=== PATIENT | male | born 1990 | race Caucasian/White ===

== ENCOUNTER 2017-04-18 17:27 | Emergency (ER) | payer OTHER ==
[~2017-04-18] VITALS: Ht 175.3 cm; Wt 102.1 kg
[~2017-04-18 17:27] MED LIST: ALLOPURINOL300 M1 PO; CYCLOBENZAPRINE5 M2 PO; DOXYCYCLINE HY100 M2 PO; FLEXERIL10 MG PO; INDOMETHACIN50 M1 PO; TESSALON PERLE100 M1 PO; ULTRAM50 M1 PO
--- NOTE | 2017-04-18 17:45 | ED GI/GU/ABDOMINAL COMPLAINT ---
History of Present Illness General Chief Complaint: General Adult Stated Complaint: SPLEEN INJURY Source: patient Exam Limitations: no limitations Vital Signs & Intake/Output Vital Signs & Intake/Output Vital Signs Date Time Temp Pulse Resp B/P B/P Pulse O2 O2 Flow FiO2 Mean Ox Delivery Rate 04/18 2054 97.2 97 18 135/80 95 Room Air Room Air 04/18 1847 97.0 103 20 142/80 96 Room Air 04/18 1733 97.3 105 18 150/97 94 Room Air ED Intake and Output 04/19 0000 04/18 1200 Intake Total Output Total Balance Patient 225 lb Weight Weight Reported by Patient Measurement Method Allergies Coded Allergies: clindamycin (ANAPHYLAXIS 04/18/17) Reconcile Medications Acetaminophen 500 MG TABLET 2 TAB PO PRN PAIN (Reported) Albuterol Sulfate (Proventil Hfa) 90 MCG HFA.AER.AD 2 PUF INH PRN ASTHMA ( Reported) Allopurinol 300 MG TABLET 1 TAB PO QPM GOUT (Reported) Fluticasone/Vilanterol (Breo Ellipta 200-25 Mcg INH) 200 MCG-25 MCG/DOSE BLST.W.DEV 1 PUFF INH QAM ASTHMA (Reported) Meloxicam 15 MG TABLET 1 TAB PO QAM PAIN/INFLAMMATION (Reported) Montelukast Sodium 10 MG TABLET 1 TAB PO DAILY ALLERGIES (Reported) Triage Note: PT STATES HE HAD A CT SCAN LAST WEEK AND STATES THEY TOLD HIM THAT HE HAD AN ENLARGED SPLEEN. PT STATES HE HAD A BLOW TO HIS CHEST AND STATES HE IS HAVING PAIN AND HIS DR. TOLD HIM TO GET TO THE ED. Triage Nurses Notes Reviewed? yes HPI: 26-year-old male arrived to triage to room 4 for evaluation of left upper quadrant abdominal pain. 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 Patient has continued pain to the left upper quadrant mild to moderate at this time. He denies any nausea vomiting or diarrhea. Denies any fever or chills. Patient has a history of lymphadenopathy and splenomegaly that is undiagnosed at this time. He's had lymph biopsy, bronchoscopies with negative results at this time. He has a history of mono in the past but nothing of other significant has been diagnosed at this time. Since he has a history of splenomegaly and last CAT scan a few weeks ago showed continued splenomegaly, he is here to ensure no splenic bleeding. He refuses any pain medication at this time. (HARSHA BAKER APRN) Past History Travel History Traveled to [place] past 21 day No Medical History Any Pertinent Medical History? see below for history Neurological: NONE EENT: NONE Cardiovascular: NONE Respiratory: NONE Gastrointestinal: NONE Hepatic: NONE Renal: NONE Musculoskeletal: gout, TENDONITIS Psychiatric: NONE Endocrine: NONE Blood Disorders: HYPERERACEMIA Cancer(s): NONE COLLECTIONS PROFESSIONAL/Reproductive: NONE Other Medical Hx: Lymphadenopathy, splenomegaly Surgical History Surgical History: non-contributory Psychosocial History What is your primary language Czech Tobacco Use: Never used ETOH Use: denies use Illicit Drug Use: denies illicit drug use Family History Hx Contributory? No (HARSHA BAKER APRN) Review of Systems Review of Systems Constitutional: Reports: no symptoms. EENTM: Reports: no symptoms. Respiratory: Reports: no symptoms. Cardiovascular: Reports: no symptoms. GI: Reports: abdominal pain. Genitourinary: Reports: no symptoms. Musculoskeletal: Reports: no symptoms. Skin: Reports: no symptoms. Neurological/Psychological: Reports: no symptoms. Hematologic/Endocrine: Reports: no symptoms. Immunologic/Allergic: Reports: no symptoms. All Other Systems: Reviewed and Negative (HARSHA BAKER APRN) Physical Exam Physical Exam General Appearance: well developed/nourished, no apparent distress, alert, awake , comfortable Head: atraumatic, normal appearance Eyes: Bilateral: normal appearance, PERRL, EOMI. Respiratory: normal breath sounds, chest non-tender, no respiratory distress, quiet respiration Cardiovascular: regular rate/rhythm Gastrointestinal: normal bowel sounds, soft, tenderness (LUQ ABD PAIN) Back: normal inspection, normal range of motion Extremities: normal range of motion Neurologic/Psych: no motor/sensory deficits, awake, alert, oriented x 3, normal gait, normal mood/affect Skin: intact, normal color, warm/dry Core Measures ACS in differential dx? No Severe Sepsis Present: No Septic Shock Present: No (HARSHA BAKER APRN) Progress Differential Diagnosis: SPLENIC INJURY, CONTUSION Plan of Care: Orders Procedure Date/time Status Saline Lock 04/18 1750 Active LIPASE 04/18 175 Complete COMPREHENSIVE METABOLIC PANEL 04/18 1750 Complete CBC WITHOUT DIFFERENTIAL 04/18 1750 Complete AMYLASE 04/18 1750 Complete Laboratory Tests 04/18/17 1805: Anion Gap 15, Estimated GFR > 60, BUN/Creatinine Ratio 20.0, Glucose 101 H, Calcium 9.7, Total Bilirubin 0.8, AST 55, ALT 107 H, Alkaline Phosphatase 55, Total Protein 7.8, Albumin 4.4, Globulin 3.4, Albumin/Globulin Ratio 1.3, Amylase 173 H, Lipase 138, CBC w Diff NO MAN DIFF REQ, RBC 5.26, MCV 90.1, MCH 30.8, RDW 13.6, MPV 7.6, Gran % 73.3, Lymphocytes % 20.9, Monocytes % 3.8, Eosinophils % 1.6, Basophils % 0.4, Absolute Granulocytes 8.7 H, Absolute Lymphocytes 2.5, Absolute Monocytes 0.4, Absolute Eosinophils 0.2, Absolute Basophils 0.1, PUBS MCHC 34.1 Initial ED EKG: none Comments: PATIENT: SANDRA PRAKASH PRESENT AGE: 26 PATIENT ACCOUNT NO: [id number] : 91 LOCATION: [facility] ORDERING PHYSICIAN: HARSHA BAKER APRN SERVICE DATE: 04/18/17 EXAM TYPE: CAT - CT ABD & PELVIS W IV CONTRAST EXAMINATION: CT ABDOMEN AND PELVIS WITH CONTRAST CLINICAL INFORMATION: Question splenic injury with left upper quadrant abdominal pain after trauma. COMPARISON: None TECHNIQUE: Multidetector volumetric imaging was performed of the abdomen and pelvis before and after the IV administration of 94 mL of Optiray 320 intravenous contrast. Sagittal and coronal reformatted images were obtained on the technologist's workstation. DLP: 585 mGy-cm FINDINGS: The lung bases are clear. There are no pleural effusions. The spleen is homogeneous in attenuation. No perisplenic fluid is identified. The liver is homogeneously low in attenuation as result of diffuse fatty infiltration. No biliary ductal dilatation is seen. The portal vein opacifies normally. The gallbladder is normal. The pancreas is homogeneous. The adrenal glands and kidneys are normal. The abdominal aorta is normal in caliber. No retroperitoneal adenopathy is seen. There is no evidence of an underlying bowel obstruction. No large bowel wall thickening is seen. No free air or free fluid is identified. The terminal ileum and appendix are normal. The bladder is decompressed. The prostate gland and seminal vesicles are normal. There is mild disc space narrowing at L5-S1. No acute osseous abnormality is identified. No rib fractures are identified. At the T8-T9 level, there is a small right paracentral disc protrusion with mild impression upon the ventral thecal sac. IMPRESSION: No acute traumatic findings. Hepatic steatosis. No evidence of splenic injury. DICTATED BY: DEMIAN FANG MD DATE/TIME DICTATED:04/18/172035 POLITICAL ORGANIZER:BENNY DATE/TIME TRANSCRIBED:04/18/172035 CONFIDENTIAL, DO NOT COPY WITHOUT APPROPRIATE AUTHORIZATION. <Electronically signed in Other Vendor System> SIGNED BY: DEMIAN FANG MD 2043 CT scanning results explained to patient. He will follow up with his primary care provider. He is feeling well, tolerating fluids and ice chips very well. (HARSHA BAKER APRN) Departure Departure Time of Disposition: 2048 Disposition: HOME OR SELF CARE Condition: Stable Clinical Impression Primary Impression: Contusion Qualifiers: Encounter type: initial encounter Contusion area: abdominal wall Qualified Code: S30.1XXA - Contusion of abdominal wall, initial encounter Referrals: MARGE PIERSON MD (PCP/Family) Additional Instructions: Please follow up with Dr. PIERSON on Thursday of this week to let him know of CAT scan results. Return to the emergency department for any worsening or concerning symptoms. Departure Forms: Customer Survey General Discharge Information (HARSHA BAKER APRN) PA/BUSINESS APPLICATIONS DEVELOPER Co-Sign Statement Statement: ED Attending supervision documentation- [X] I saw and evaluated the patient. I have also reviewed all the pertinent lab results and diagnostic results. I agree with the findings and the plan of care as documented in the PA's/BUSINESS APPLICATIONS DEVELOPER's documentation. [] I have reviewed the ED Record and agree with the PA's/BUSINESS APPLICATIONS DEVELOPER's documentation. [] Additions or exceptions (if any) to the PAs/BUSINESS APPLICATIONS DEVELOPER's note and plan are summarized below: [] (DENISE AWAD DO) ED Attending Observation Initial Observation Note: I have seen and personally examined SANDRA PRAKASH on 04/18/17 at 2034. I agree with the current emergency department documentation. The disposition (admission or discharge) is uncertain at this time, he needs a period of observation for the following reason(s): The ED Nurse caring for this patient has been personally informed as to what the patient is being observed for. (HARSHA BAKER APRN)
[2017-04-18] MEDS ORDERED: MELOXICAM15 M1 PO (18:00)
[2017-04-18] MEDS ORDERED: PROVENTIL HFA6.7 GM INH (18:00)
[2017-04-18] MEDS ORDERED: MONTELUKAST SOD10 M1 PO (18:00)
[2017-04-18] MEDS ORDERED: BREO ELLIPTA 21 EACH INH (18:00)
[2017-04-18] MEDS ORDERED: ACETAMINOPHEN500 M4 PO (18:01)
[2017-04-18 18:17] LABS: ABSOLUTE BASOPHIL COUNT 0.1 /CUMM (0.0-0.2); ABSOLUTE EOSINOPHIL COUNT 0.2 /CUMM (0.0-0.7); ABSOLUTE GRANULOCYTE CT 8.7 /CUMM (1.4-6.5); ABSOLUTE LYMPH COUNT 2.5 /CUMM (1.2-3.4); ABSOLUTE MONOCYTE COUNT 0.4 /CUMM (0.10-0.60); BASOPHIL % 0.4 % (0.0-2.0); EOSINOPHIL % 1.6 % (0-5); GRANULOCYTE % 73.3 % (42.2-75.2); HEMATOCRIT 47.4 % (42-52); MEAN CORPUSCULAR HGB 30.8 PG (27.0-31.0); MEAN CORPUSCULAR HGB CONC 34.1 G/DL (33.0-37.0); MEAN CORPUSCULAR VOLUME 90.1 FL (80.0-94.0); MEAN PLATELET VOLUME 7.6 FL (7.4-10.4); PLATELET COUNT 250 /CUMM (130-400); RBC DISTRIBUTION WIDTH 13.6 % (11.5-14.5); RED BLOOD CELL CT 5.26 /CUMM (4.70-6.10); WHITE BLOOD CELL COUNT 11.9 /CUMM (4.8-10.8)
--- NOTE | 2017-04-18 20:44 | CT SCAN REPORT ---
EXAMINATION: CT ABDOMEN AND PELVIS WITH CONTRAST CLINICAL INFORMATION: Question splenic injury with left upper quadrant abdominal pain after trauma. COMPARISON: None TECHNIQUE: Multidetector volumetric imaging was performed of the abdomen and pelvis before and after the IV administration of 94 mL of Optiray 320 intravenous contrast. Sagittal and coronal reformatted images were obtained on the technologist's workstation. DLP: 585 mGy-cm FINDINGS: The lung bases are clear. There are no pleural effusions. The spleen is homogeneous in attenuation. No perisplenic fluid is identified. The liver is homogeneously low in attenuation as result of diffuse fatty infiltration. No biliary ductal dilatation is seen. The portal vein opacifies normally. The gallbladder is normal. The pancreas is homogeneous. The adrenal glands and kidneys are normal. The abdominal aorta is normal in caliber. No retroperitoneal adenopathy is seen. There is no evidence of an underlying bowel obstruction. No large bowel wall thickening is seen. No free air or free fluid is identified. The terminal ileum and appendix are normal. The bladder is decompressed. The prostate gland and seminal vesicles are normal. There is mild disc space narrowing at L5-S1. No acute osseous abnormality is identified. No rib fractures are identified. At the T8-T9 level, there is a small right paracentral disc protrusion with mild impression upon the ventral thecal sac. IMPRESSION: No acute traumatic findings. Hepatic steatosis. No evidence of splenic injury.
[2017-04-18 20:54] VITALS: BP 135/80
== END 2017-04-18 21:26 ==
LOC: ERH 17:27
PROVIDERS: Nurse Practitioner Family
DX: S30.1XXA Contusion of abdominal wall, initial encounter (principal); Y04.2XXA Assault by strike against or bumped into by another person, initial encounter; Y93.9 Activity, unspecified; Y92.9 Unspecified place or not applicable
CPT/HCPCS: 74177

== ENCOUNTER 2018-04-09 15:46 | Emergency (ER) | payer OTHER ==
[~2018-04-09] VITALS: Ht 175.3 cm; Wt 100.7 kg
[~2018-04-09 15:46] MED LIST changes: +ACETAMINOPHEN500 M4 PO; +BREO ELLIPTA 21 EACH INH; +MELOXICAM15 M1 PO; +MONTELUKAST SOD10 M1 PO; +PROVENTIL HFA6.7 GM INH
--- NOTE | 2018-04-09 18:36 | ED HEAD/FACIAL INJ COMPLAINT ---
History of Present Illness General Chief Complaint: General Adult Stated Complaint: "HIT MY FOREHEAD ON AB MACHINE", CP Source: patient Exam Limitations: no limitations Vital Signs & Intake/Output Vital Signs & Intake/Output Vital Signs Date Time Temp Pulse Resp B/P B/P Pulse O2 O2 Flow FiO2 Mean Ox Delivery Rate 04/09 1848 98.1 85 18 128/82 99 Room Air 04/09 1557 98.7 94 18 151/95 98 Room Air Room Air ED Intake and Output 04/10 0000 04/09 1200 Intake Total 0 Output Total Balance 0 Intake, Oral 0 Patient 100.698 kg Weight Weight Reported by Patient Measurement Method Allergies Coded Allergies: clindamycin (ANAPHYLAXIS 04/18/17) Reconcile Medications Acetaminophen 500 MG TABLET 2 TAB PO PRN PAIN (Reported) Albuterol Sulfate (Proventil Hfa) 90 MCG HFA.AER.AD 2 PUF INH PRN ASTHMA ( Reported) Allopurinol 300 MG TABLET 1 TAB PO QPM GOUT (Reported) Fluticasone/Vilanterol (Breo Ellipta 200-25 Mcg INH) 200 MCG-25 MCG/DOSE BLST.W.DEV 1 PUFF INH QAM ASTHMA (Reported) Meloxicam 15 MG TABLET 1 TAB PO QAM PAIN/INFLAMMATION (Reported) Montelukast Sodium 10 MG TABLET 1 TAB PO DAILY ALLERGIES (Reported) Triage Note: PT TO ED WITH C/O LEFT EYE PAIN S/P "TRIPPED OVER WORK OUT MAT INTO AB MACHINE YESTERDAY" PT DENIES LOC. "I ICED IT YESTERDAY, FELT REALLY TIRED, AND WORSE TODAY". Triage Nurses Notes Reviewed? yes HPI: 27M no PMH presents with facial pain after hitting his face on a piece of gym equipment one day ago. He tripped over a mat and caught a metal bar to the face , just below his and above his left eye. He did not hit his eye. He reports increasing pain around his ee today. He has iced his face since then, and there is no swelling, skin break, or erythema. He has intact vision and no visual complaints. He denies fever, chills, headache, nausea, vomiting, neck stiffness, sinus drainage, neck pain, chest pain, SOB. He has a history of sinus reconstruction surgery. He has no other complaints. Past History Travel History Traveled to [place] past 21 day No Medical History Any Pertinent Medical History? see below for history Neurological: NONE EENT: NONE Cardiovascular: NONE Respiratory: asthma Gastrointestinal: NONE Hepatic: NONE Renal: NONE Musculoskeletal: gout, TENDONITIS Psychiatric: NONE Endocrine: NONE Blood Disorders: HYPERERACEMIA Cancer(s): NONE WILDERNESS GUIDE/Reproductive: NONE Other Medical Hx: Lymphadenopathy, splenomegaly Surgical History Surgical History: non-contributory Psychosocial History What is your primary language Senegalese Tobacco Use: Never used ETOH Use: denies use Illicit Drug Use: denies illicit drug use Family History Hx Contributory? No Review of Systems Review of Systems Constitutional: Reports: no symptoms. EENTM: Reports: no symptoms. Respiratory: Reports: no symptoms. Cardiovascular: Reports: no symptoms. GI: Reports: no symptoms. Genitourinary: Reports: no symptoms. Musculoskeletal: Reports: no symptoms. Skin: Reports: no symptoms. Neurological/Psychological: Reports: no symptoms. Hematologic/Endocrine: Reports: no symptoms. Immunologic/Allergic: Reports: no symptoms. All Other Systems: Reviewed and Negative Physical Exam Physical Exam General Appearance: well developed/nourished, mild distress Head: atraumatic, normal appearance, mild tendernesss to left zygomatic arch without any evidence of depression, deformity, or fracture Eyes: Bilateral: normal appearance, PERRL, EOMI. Ears, Nose, Throat: normal pharynx, normal ENT inspection, hearing grossly normal Neck: normal inspection, supple Respiratory: normal breath sounds Cardiovascular: regular rate/rhythm Gastrointestinal: soft, non-tender Back: normal inspection Extremities: normal inspection, normal range of motion, no edema Psychiatric: awake, alert, oriented x 3 Cranial Nerves: normal hearing, normal speech, PERRL Coordination/Gait: normal gait Motor/Sensory: no motor/sensory deficits Skin: intact, normal color, warm/dry Lymphatic: no anterior cervical juanis Progress Differential Diagnosis: corneal abrasion, c-spine injury, facial fracture, globe injury, ICH, orbit fracture, skull fracture Plan of Care: Orders Procedure Date/time Status EKG 04/09 1547 Active No evidence of fracture or bony injury. No injury to eye. Will discharge home with PCP follow up. Departure Departure Disposition: HOME OR SELF CARE Condition: Stable Clinical Impression Primary Impression: Facial contusion Qualifiers: Encounter type: initial encounter Qualified Code: S00.83XA - Contusion of other part of head, initial encounter Secondary Impressions: Post-nasal drip Referrals: Simona EPPERSON,Radu Robbins (PCP/Family) Additional Instructions: Follow up with your PCP. If you have any new or worsening symptoms, return to ER. Departure Forms: Customer Survey General Discharge Information
[2018-04-09 18:48] VITALS: BP 128/82
== END 2018-04-09 18:50 ==
LOC: ERH 15:46
DX: S00.83XA Contusion of other part of head, initial encounter (principal); R09.82 Postnasal drip; W22.8XXA Striking against or struck by other objects, initial encounter; Y92.9 Unspecified place or not applicable; Y93.9 Activity, unspecified
CPT/HCPCS: 93005; 93010